=== PATIENT | female | born 1970 | race Caucasian/White ===

== ENCOUNTER 2018-08-23 14:46 | Emergency (ER) | payer MEDICARE ==
[2018-08-23 15:06] LABS: Absolute Lymphocytes (CBC) 2.1 K/uL (0.7-4.9); Eosinophils % 2.4 % (0-4.4); Hematocrit 40.9 % (36.0-45.0); Lymphocytes % 22.6 % (15.3-44.8); MPV 9.4 fL (7.6-11.3); Monocytes % 10.8 % (3.3-12.3); RBC Red Blood Cell Count 4.17 M/uL (3.86-4.86)
[2018-08-23] MEDS ORDERED: TETANUS & DIPHTHERIA TOX,ADULT 0.5 ML VIAL ONE (15:08)
[2018-08-23] MEDS ORDERED: ONDANSETRON 4 MG/2 ML VIAL ONE ×3 (15:08→20:58)
[2018-08-23] MEDS ORDERED: MORPHINE 4 MG/ML SYR ONE ×3 (15:08→18:02)
[2018-08-23] MEDS ORDERED: NA CHLORIDE 0.9% 1,000 ML ONE (15:08)
--- NOTE | 2018-08-23 15:26 | RAD REPORT ---
EXAM DESCRIPTION: CT - CTHCSPWOC - 08/23/2018 3:13 pm CLINICAL HISTORY: Trauma, head and neck injury. PAIN COMPARISON: No comparisons TECHNIQUE: Axial 5 mm thick images of the head were obtained. Axial 2 mm thick images of the cervical spine were obtained with sagittal and coronal reconstruction images generated and reviewed. All CT scans are performed using dose optimization technique as appropriate and may include automated exposure control or mA/KV adjustment according to patient size. FINDINGS: CT HEAD WITHOUT CONTRAST: No acute hemorrhage, hydrocephalus or extra-axial collection is identified.No areas of brain edema or midline shift. The paranasal sinuses and left mastoid are clear.Previous right partial mastoidectomy seen.The calvar ium is intact. CT CERVICAL SPINE WITHOUT CONTRAST: No fracture or subluxation.Moderate multilevel spondylosis of the cervical spine is present. Central canal stenosis is likely present C5-6 and C6-7.No prevertebral soft tissues swelling is identified. IMPRESSION: No acute intracranial or cervical spine findings. Moderate cervical degenerative changes.
[2018-08-23] MEDS ORDERED: CEFAZOLIN/SWI 1gm 0 GM/0 ML SYR ONE (15:37)
--- NOTE | 2018-08-23 16:11 | RAD REPORT ---
EXAM DESCRIPTION: RAD - Knee Left 3 View - 08/23/2018 3:56 pm CLINICAL HISTORY: PAIN Trauma, pain, swelling COMPARISON: None FINDINGS: Left knee and left tibia/fibula - multiple projections are submitted Lucency is present along the anterior aspect of the superior tibia compatible with a fracture. Soft t issue swelling is present. A small knee joint effusion is present.
--- NOTE | 2018-08-23 16:13 | RAD REPORT ---
EXAM DESCRIPTION: RAD - Foot Right 3 View - 08/23/2018 3:55 pm CLINICAL HISTORY: right great toe laceration COMPARISON: <Comparisons> FINDINGS: Soft tissue swelling is seen affecting the great toe. Bandaging obscures bone detail in th e region. Irregularity of the interphalangeal joint of the great toe is probably chronic. There is ev idence of a spiral fracture, partially seen, involving the distal fibular shaft, which shows unusual abnormal bony expansion.
[2018-08-23] MEDS ORDERED: LIDOCAINE 1% MPF 5 ML VIAL ONE ×2 (16:24→16:27)
[2018-08-23] MEDS ORDERED: CEFAZOLIN/SWI 1gm 1 GM/10 ML SYR ONE (16:25)
--- NOTE | 2018-08-23 17:11 | EDPHYS ---
Physician Documentation [facility] Name: Gita Bautista Age: 47 yrs Sex: Female : 1970 Arrival Date: 08/23/2018 Time: 14:47 Bed 4 Private MD: LELE Physician Ronnie Mattson HPI: 08/23 15:45 This 47 yrs old Female presents to ER via EMS with complaints of Fall Injury. pm1 15:45 Details of fall: The patient fell from seated position, Motorized wheelchair. Onset: pm1 The symptoms/episode began/occurred just prior to arrival. Associated injuries: The patient sustained right first toe laceration and pain, left knee, painful injury. Associated injuries: The patient sustained face, abrasion. Severity of symptoms: in the emergency department the symptoms are unchanged. The patient has not experienced similar symptoms in the past. The patient has not recently seen a physician, the patient's primary care provider is Dr. Jasmine. 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 Rods in back from arthrogryposis and scoliosis. Patient non-ambulatory and uses motorized wheelchair. Patient was going around a corner and she fell over. The wheelchair continued to move and it ran over her right foot, right lower leg, and left lower leg. Presenting with pain to right foot, right lower leg and left lower leg below the knee, laceration to right great toe, abrasion to left forehead, and headache. No LOC, neck pain, vomiting.. 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 - Social history:: Smoking status: Patient/guardian denies using tobacco. - Immunization history: Last tetanus immunization: - up to date. - Ebola Screening: : No symptoms or risks identified at this time. ROS: 15:45 Constitutional: Negative for fever, chills, and weight loss, Eyes: Negative for injury, pm1 pain, redness, and discharge, ENT: Negative for injury, pain, and discharge, Neck: Negative for injury, pain, and swelling, Cardiovascular: Negative for chest pain, palpitations, and edema, Respiratory: Negative for shortness of breath, cough, wheezing, and pleuritic chest pain, Abdomen/GI: Negative for abdominal pain, nausea, vomiting, diarrhea, and constipation, Back: Negative for injury and pain. 15:45 MS/extremity: Positive for pain, of the right great toe, right lower leg, left lower leg. 15:45 Skin: Positive for laceration(s), of the right first toe. 15:45 Neuro: Positive for headache, Negative for numbness, tingling, weakness, sensation intact to right great toe. Exam: 15:45 Constitutional: This is a well developed, well nourished patient who is awake, alert, pm1 and in no acute distress. Eyes: Pupils equal round and reactive to light, extra-ocular motions intact. Lids and lashes normal. Conjunctiva and sclera are non-icteric and not injected. Cornea within normal limits. Periorbital areas with no swelling, redness, or edema. 15:45 ENT: Nares patent. No nasal discharge, no septal abnormalities noted. Tympanic membranes are normal and external auditory canals are clear. Oropharynx with no redness, swelling, or masses, exudates, or evidence of obstruction, uvula midline. Mucous membranes moist. Neck: Trachea midline, no thyromegaly or masses palpated, and no cervical lymphadenopathy. Supple, full range of motion without nuchal rigidity, or vertebral point tenderness. No Meningismus. Chest/axilla: Normal chest wall appearance and motion. Nontender with no deformity. No lesions are appreciated. Cardiovascular: Regular rate and rhythm with a normal S1 and S2. No gallops, murmurs, or rubs. No pulse deficits. Respiratory: Lungs have equal breath sounds bilaterally, clear to auscultation and percussion. No rales, rhonchi or wheezes noted. No increased work of breathing, no retractions or nasal flaring. Back: No spinal tenderness. No costovertebral tenderness. Full range of motion. 15:45 Head/face: Exam is negative for hernandez signs, deformity, raccoon eyes, Noted is no obvious of injury or deformity except abrasion(s), that are mild, of the forehead. 15:45 Abdomen/GI: Inspection: obese Bowel sounds: normal, Palpation: abdomen is soft and non-tender, in all quadrants, mass, is not appreciated, rebound tenderness, is not appreciated. 15:45 Musculoskeletal/extremity: Extremities: grossly normal except: noted in the right first toe: open fracture, noted in the left ortega tenderness just below left knee: noted in the right ortega: tenderness, distally. 15:45 Skin: Appearance: normal except for affected area, injury, abrasion(s), small abrasion noted, of the forehead, laceration(s), the wound is approximately 7 cm(s), with a depth of 1 cm(s), of the right first toe. 15:45 Neuro: Orientation: is normal, Mentation: is normal, Sensation: neurovascular status intact to right great toe. Vital Signs: 14:48 BP 136 / 66; Pulse 92; Resp 16; Temp 98.2; Pulse Ox 98% on R/A; Pain 9/10; hb 17:50 BP 110 / 67; Pulse 66; Resp 16; Pulse Ox 100% on R/A; sg 20:30 BP 89 / 59; Pulse 77; Resp 16; Temp 97.6; Pulse Ox 100% on R/A; ak1 20:54 BP 96 / 58; Pulse 73; Resp 16; Temp 97.6; Pulse Ox 100% on R/A; ak1 [place] Coma Score: 17:50 Eye Response: spontaneous(4). Verbal Response: oriented(5). Motor Response: obeys sg commands(6). Total: 15. Trauma Score (Adult): 14:48 Eye Response: spontaneous(1); Verbal Response: oriented(1); Motor Response: obeys hb commands(2); Systolic BP: > 89 mm Hg(4); Respiratory Rate: 10 to 29 per min(4); [place] Score: 15; Trauma Score: 12 17:50 Eye Response: spontaneous(1); Verbal Response: oriented(1); Motor Response: obeys sg commands(2); Systolic BP: > 89 mm Hg(4); Respiratory Rate: 10 to 29 per min(4); [place] Score: 15; Trauma Score: 12 Laceration: 17:04 Wound Repair of 7cm ( 2.8in ) subcutaneous laceration to right first toe. Irregularly pm1 shaped.. Distal neuro/vascular/tendon intact. Anesthesia: Local anesthetic administered with 4 mls of 1% lidocaine. Wound prep: Extensive cleansing with hibiclenz by me, Wound irrigation with saline by me, Wound explored extensively, Copious irrigation. Skin closed with 8 4-0 Prolene using simple sutures and sterile technique. Dressed with Neosporin, 4x4's. Patient tolerated well. MDM: 14:48 Patient medically screened. pm1 17:06 Data reviewed: vital signs. Data interpreted: Pulse oximetry: on room air is 98 %. pm1 Interpretation: normal. Counseling: I had a detailed discussion with the patient and/or guardian regarding: the historical points, exam findings, and any diagnostic results supporting the discharge/admit diagnosis, radiology results, the need to transfer to another facility, for higher level of care. 17:30 Physician consultation: Alin Summers MD was called at 17:29, was contacted at 17:29, pm1 regarding consult, patient's condition, after a discussion of the case, a recommendation for transfer for higher level of care is made, Transfer for higher level of care due to potential complications related to patient's arthrogryposis. 18:42 Physician consultation: Trauma Surgeon Person was contacted at 18:31, regarding pm1 regarding transfer, patient's condition, and will see patient in ED. 08/23 14:50 Order name: Basic Metabolic Panel; Complete Time: 15:24 pm1 08/23 14:50 Order name: CBC with Diff; Complete Time: 15:15 pm1 08/23 14:50 Order name: CT Head C Spine; Complete Time: 15:40 pm1 08/23 14:50 Order name: Creatinine for Radiology; Complete Time: 15:24 pm1 08/23 14:50 Order name: Type And Screen; Complete Time: 15:51 pm1 08/23 19:16 Order name: ABO/RH no charge; Complete Time: 19:16 EDMS 08/23 14:50 Order name: Foot Right 3 View XRAY; Complete Time: 17:10 pm1 08/23 14:50 Order name: Knee Left 3 View XRAY; Complete Time: 17:10 pm1 08/23 14:50 Order name: Tib Fib Left XRAY pm1 08/23 17:03 Order name: Tib Fib Right XRAY; Complete Time: 17:53 pm1 08/23 14:50 Order name: Labs collected and sent; Complete Time: 14:51 pm1 08/23 16:06 Order name: Prolene, Sutures; Complete Time: 16:41 pm1 08/23 16:06 Order name: Dressing - Wound; Complete Time: 16:41 pm1 08/23 16:06 Order name: Gloves, Sterile; Complete Time: 16:41 pm1 08/23 16:06 Order name: Setup Suture Tray; Complete Time: 16:41 pm1 08/23 16:06 Order name: Splint - Posterior Leg; Complete Time: 18:27 pm1 08/23 17:57 Order name: Splint - Posterior Leg: RIght; Complete Time: 18:25 pm1 Administered Medications: 14:56 Drug: Tetanus-Diphtheria Toxoid Adult 0.5 ml {[employer]: [employer]. Exp: 05/17/2020. Lot #: [id number]. } Route: IM; Site: right deltoid; 16:22 Follow up: Response: No adverse reaction mg2 14:57 Drug: morphine 4 mg Route: IVP; Site: right antecubital; hb 16:23 Follow up: Response: No adverse reaction; Marked relief of symptoms mg2 14:57 Drug: Zofran 4 mg Route: IVP; Site: right antecubital; hb 16:23 Follow up: Response: No adverse reaction; Marked relief of symptoms mg2 16:21 Drug: ceFAZolin 1 grams Volume: 50 ml; Route: IVPB; Infused Over: 30 mins; Site: right hb antecubital; 20:55 Follow up: IV Status: Completed infusion ak1 16:21 Drug: morphine 4 mg Route: IVP; Site: right antecubital; hb 20:55 Follow up: Response: No adverse reaction ak1 16:22 Drug: NS 0.9% 1000 ml Route: IV; Rate: 125 ml/hr; Site: right antecubital; hb 20:55 Follow up: IV Status: Completed infusion; IV Intake: 1000ml ak1 16:40 Drug: Lidocaine (1 %) 5 ml {Note: given by provider.} Volume: 5 ml; Route: Infiltration;mg2 17:54 Drug: morphine 4 mg Route: IVP; Site: right antecubital; sg 19:37 Follow up: Response: No adverse reaction ak1 17:55 Drug: Zofran 4 mg Route: IVP; Site: right antecubital; sg 19:37 Follow up: Response: No adverse reaction ak1 20:51 Drug: fentaNYL (PF) 50 mcg Route: IVP; Site: right antecubital; ak1 20:52 Follow up: Response: No adverse reaction ak1 20:52 Drug: Zofran 4 mg Route: IVP; Site: right antecubital; ak1 20:52 Follow up: Response: No adverse reaction ak1 Disposition: 08/24 07:19 Co-signature as Attending Physician, Ronnie Mattson MD I agree with the assessment and chad plan of care. Disposition: 08/23/18 17:10 Transfer ordered to [facility]. Diagnosis are Fracture of great toe - right great toe open fracture, Left tibia plateau fracture, Abrasion of unspecified part of head, Superficial injury of head, Distal right tibia spiral fracture, Proximal right fibula oblique fracture. - Reason for transfer: Higher level of care. - Accepting physician is [facility]. - Condition is Stable. - Problem is new. - Symptoms have improved. Signatures: Dispatcher [employer] Jose Singleton, Ronnie Chavez RN, MD MD cha Krenek, Amber RN RN ak1 Fortino Duncan, PROFESSOR OF THEATRE PROFESSOR OF THEATRE pm1 Rose Driscoll RN RN Jerry Olivares RN RN mg2 Corrections: (The following items were deleted from the chart) 08/23 17:12 16:15 Ortho shoe ordered. pm1 pm1 17:13 17:10 08/23/2018 17:10 Transfer ordered to [facility]. pm1 Diagnosis is Fracture of great toe - right great toe open fractureLeft tibia plateau fracture; Abrasion of unspecified part of head; Superficial injury of head. Reason for transfer: Higher level of care. Accepting physician is [facility]. Condition is Stable. Problem is new. Symptoms have improved. pm1 17:56 17:13 08/23/2018 17:10 Transfer ordered to [facility]. pm1 Diagnosis is Fracture of great toe - right great toe open fractureLeft tibia plateau fracture; Abrasion of unspecified part of head; Superficial injury of head; Distal right fibula spiral fracture. Reason for transfer: Higher level of care. Accepting physician is [facility]. Condition is Stable. Problem is new. Symptoms have improved. pm1 17:57 17:12 Splint - Ankle: Orthoglass: Posterior ordered. pm1 pm1 21:09 17:56 08/23/2018 17:10 Transfer ordered to [facility]. ak1 Diagnosis is Fracture of great toe - right great toe open fractureLeft tibia plateau fracture; Abrasion of unspecified part of head; Superficial injury of head; Distal right tibia spiral fracture; Proximal right fibula oblique fracture. Reason for transfer: Higher level of care. Accepting physician is [facility]. Condition is Stable. Problem is new. Symptoms have improved. pm1
--- NOTE | 2018-08-23 17:11 | ER ---
Nurse's Notes [facility] Name: Gita Bautista Age: 47 yrs Sex: Female : 1970 Arrival Date: 08/23/2018 Time: 14:47 Bed 4 Private MD: Diagnosis: Left tibia plateau fracture;Fracture of great toe-right great toe open fracture;Abrasion of unspecified part of head;Superficial injury of head;Distal right tibia spiral fracture;Proximal right fibula oblique fracture Presentation: 08/23 14:46 Presenting complaint: EMS states: Motorized wheelchair fell off curb then ran over both legs. Partial amputation of right great toe, abrasion to left forehead, pt c/o bilateral leg pain 11/27. Negative LOC. Care prior to arrival: None. Mechanism of Injury: Fall out of chair. Trauma event details: Injury occurred in the [facility], Injury occurred: on a street or highway. Injury occurred: August 23, 2018. 14:46 Acuity: IGOR 2 14:46 Method Of Arrival: EMS: [facility] 19:33 Transition of care: patient was not received from another setting of care. Onset of ak1 symptoms was August 23, 2018. Risk Assessment: Do you want to hurt yourself or someone else? Patient reports no desire to harm self or others. Initial Sepsis Screen: Does the patient meet any 2 criteria? No. Patient's initial sepsis screen is negative. Does the patient have a suspected source of infection? No. Patient's initial sepsis screen is negative. [employer]: 19:33 unknown ak1 Trauma Activation: Alert Physician: ED Physician; Name: ; Notified At: ; Arrived At: Physician: General Surgeon; Name: ; Notified At: ; Arrived At: Physician: Radiology; Name: ; Notified At: ; Arrived At: Physician: Respiratory; Name: ; Notified At: ; Arrived At: Physician: Lab; Name: ; Notified At: ; Arrived At: Historical: - Allergies: 15:00 Sulfa (Sulfonamide Antibiotics); hb - Home Meds: 15:01 Lisinopril Oral [Active]; amlodipine oral [Active]; Metoprolol Tartrate Oral [Active]; hb Cyclobenzaprine Oral [Active]; - PMHx: 19:05 Hypertension; Chronic pain; sg - PSHx: 15:00 Arthrogryposis; Feet - Bilateral; Hips - Bilateral; ; mastoidectomy - right; hb tympanoplasty - right; - Immunization history:: Adult Immunizations up to date. - Social history:: Smoking status: Patient/guardian denies using tobacco. - Immunization history: Last tetanus immunization: - up to date. - Ebola Screening: : No symptoms or risks identified at this time. Screenin:50 Abuse screen: Denies threats or abuse. Denies injuries from another. Tuberculosis hb screening: No symptoms or risk factors identified. 19:34 Nutritional screening: No deficits noted. Fall Risk Gait- Normal/Bed Rest/Wheelchair (0 ak1 pts). Primary Survey: 14:50 NO uncontrolled hemorrhage observed. A: The patient is alert. Airway: patent, No hb supplemental oxygen in use on arrival. Breathing/Chest: Respiratory pattern: regular, Respiratory effort: spontaneous, unlabored, Chest inspection: symmetrical rise and fall of the chest. Circulation: Skin color: pink, Skin temperature: warm, dry. Disability Alert. Exposure/Environment: There is no evidence of uncontrolled external bleeding. Obvious injury(ies) are noted at this time: partial amputation of right great toe, abrasion to left forehead. 19:36 Reassessment Breathing/Chest Respiratory pattern Regular Respiratory effort Spontaneous ak1 Unlabored. Assessment: 14:50 General: Appears in no apparent distress. well groomed, well developed, well nourished, sg Behavior is calm, cooperative, appropriate for age. Pain: Complains of pain in forehead, anterior aspect of left shoulder, right leg and left leg Quality of pain is described as aching, sharp, tender. Neuro: Level of Consciousness is awake, alert, obeys commands, Oriented to person, place, time, situation, Speech is normal, Facial symmetry appears normal. Cardiovascular: Patient's skin is warm and dry. Chest pain is denied. Respiratory: Airway is patent Respiratory effort is even, unlabored, Respiratory pattern is regular, symmetrical. GI: Abdomen is flat, non-distended, Reports tolerance of fluids, tolerance of food. : No signs and/or symptoms were reported regarding the genitourinary system. EENT: No signs and/or symptoms were reported regarding the EENT system. Derm: Skin is pink, warm \T\ dry. Musculoskeletal: Range of motion: limited in left ankle and right ankle Reports pain in right leg and left leg. Injury Description: open fracture to the right big toe. 15:50 Reassessment: Patient appears in no apparent distress at this time. Patient and/or sg family updated on plan of care and expected duration. Pain level reassessed. Patient is alert, oriented x 3, equal unlabored respirations, skin warm/dry/pink. Patient states feeling better. 16:50 Reassessment: Patient appears in no apparent distress at this time. Patient and/or sg family updated on plan of care and expected duration. Pain level reassessed. Patient is alert, oriented x 3, equal unlabored respirations, skin warm/dry/pink. 17:50 Reassessment: Patient states feeling better. Cardiovascular: Pulses are palpable in sg right popliteal artery, right posterior tibial artery, left popliteal artery and left posterior tibial artery. Respiratory: Airway is patent Respiratory effort is even, unlabored, Respiratory pattern is regular, symmetrical. Derm: Skin is pink, warm \T\ dry. 18:51 Reassessment: Patient appears in no apparent distress at this time. Patient and/or sg family updated on plan of care and expected duration. Pain level reassessed. Patient is alert, oriented x 3, equal unlabored respirations, skin warm/dry/pink. pt repositioned to right side lying position, pt reports relief in pain and increase in comfort, pt is resting quietly. 19:32 Reassessment: Patient appears in no apparent distress at this time. No changes from ak1 previously documented assessment. Patient and/or family updated on plan of care and expected duration. Pain level reassessed. Patient is alert, oriented x 3, equal unlabored respirations, skin warm/dry/pink. pt informed of wait for EMS to transfer [facility]. [facility] 19:34 General: Appears in no apparent distress. comfortable, Behavior is calm, cooperative, ak1 appropriate for age. Pain: Complains of pain in right leg and left leg. Neuro: Level of Consciousness is awake, alert, obeys commands, Oriented to person, place, time, situation, Speech is normal, Facial symmetry appears normal. Cardiovascular: No deficits noted. Respiratory: No deficits noted. GI: No signs and/or symptoms were reported involving the gastrointestinal system. : No signs and/or symptoms were reported regarding the genitourinary system. EENT: No signs and/or symptoms were reported regarding the EENT system. Derm: abrasion to forehead, right great toe. Musculoskeletal: Reports pain in right foot, right leg and left leg. 20:56 Reassessment: pt c/o increased pain, ERP notified with new orders placed. pt informed ak1 again of wait for EMS for transport due to weather. pt assisted with bedpan and cleaned of urine. 21:05 Reassessment: report given to [facility]. ak1 Vital Signs: 14:48 BP 136 / 66; Pulse 92; Resp 16; Temp 98.2; Pulse Ox 98% on R/A; Pain 9/10; hb 17:50 BP 110 / 67; Pulse 66; Resp 16; Pulse Ox 100% on R/A; sg 20:30 BP 89 / 59; Pulse 77; Resp 16; Temp 97.6; Pulse Ox 100% on R/A; ak1 20:54 BP 96 / 58; Pulse 73; Resp 16; Temp 97.6; Pulse Ox 100% on R/A; ak1 Superior Coma Score: 17:50 Eye Response: spontaneous(4). Verbal Response: oriented(5). Motor Response: obeys sg commands(6). Total: 15. Trauma Score (Adult): 14:48 Eye Response: spontaneous(1); Verbal Response: oriented(1); Motor Response: obeys hb commands(2); Systolic BP: > 89 mm Hg(4); Respiratory Rate: 10 to 29 per min(4); Superior Score: 15; Trauma Score: 12 17:50 Eye Response: spontaneous(1); Verbal Response: oriented(1); Motor Response: obeys sg commands(2); Systolic BP: > 89 mm Hg(4); Respiratory Rate: 10 to 29 per min(4); Mahendra Score: 15; Trauma Score: 12 ED Course: 14:47 Patient arrived in ED. hb 14:48 Fortino Duncan NP is PHCP. pm1 14:48 Ronnie Mattson MD is Attending Physician. pm1 14:50 Triage completed. hb 14:50 Initial lab(s) drawn, by me, sent to lab. Inserted saline lock: 22 gauge in right ms antecubital area, using aseptic technique. Blood collected. 15:15 Jose Traylor, RN is Primary Nurse. sg 15:18 CT Head C Spine In Process Unspecified. EDMS 15:55 Foot Right 3 View XRAY In Process Unspecified. EDMS 15:55 Knee Left 3 View XRAY In Process Unspecified. EDMS 15:55 Tib Fib Left XRAY In Process Unspecified. EDMS 17:38 Tib Fib Right XRAY In Process Unspecified. EDMS 18:25 Orthoglass splint: Posterior long leg splint applied on bilaterally. ms 19:32 Patient transferred, IV remains in place. ak1 19:32 Arm band placed on Patient placed in an exam room, on a stretcher, on pulse oximetry, ak1 Patient notified of wait time. 19:33 Patient maintains SpO2 saturation greater than 95% on room air. ak1 19:34 Thermoregulation: warm blanket given to patient. ak1 19:34 Patient has correct armband on for positive identification. Placed in gown. Bed in low ak1 position. Call light in reach. Side rails up X2. nurse monitoring on. Pulse ox on. NIBP on. 20:53 No provider procedures requiring assistance completed. ak1 Administered Medications: 14:56 Drug: Tetanus-Diphtheria Toxoid Adult 0.5 ml {Strategic Planner: [employer]. Exp: hb 05/17/2020. Lot #: [id number]. } Route: IM; Site: right deltoid; 16:22 Follow up: Response: No adverse reaction mg2 14:57 Drug: morphine 4 mg Route: IVP; Site: right antecubital; hb 16:23 Follow up: Response: No adverse reaction; Marked relief of symptoms mg2 14:57 Drug: Zofran 4 mg Route: IVP; Site: right antecubital; hb 16:23 Follow up: Response: No adverse reaction; Marked relief of symptoms mg2 16:21 Drug: ceFAZolin 1 grams Volume: 50 ml; Route: IVPB; Infused Over: 30 mins; Site: right hb antecubital; 20:55 Follow up: IV Status: Completed infusion ak1 16:21 Drug: morphine 4 mg Route: IVP; Site: right antecubital; hb 20:55 Follow up: Response: No adverse reaction ak1 16:22 Drug: NS 0.9% 1000 ml Route: IV; Rate: 125 ml/hr; Site: right antecubital; hb 20:55 Follow up: IV Status: Completed infusion; IV Intake: 1000ml ak1 16:40 Drug: Lidocaine (1 %) 5 ml {Note: given by provider.} Volume: 5 ml; Route: Infiltration;mg2 17:54 Drug: morphine 4 mg Route: IVP; Site: right antecubital; sg 19:37 Follow up: Response: No adverse reaction ak1 17:55 Drug: Zofran 4 mg Route: IVP; Site: right antecubital; sg 19:37 Follow up: Response: No adverse reaction ak1 20:51 Drug: fentaNYL (PF) 50 mcg Route: IVP; Site: right antecubital; ak1 20:52 Follow up: Response: No adverse reaction ak1 20:52 Drug: Zofran 4 mg Route: IVP; Site: right antecubital; ak1 20:52 Follow up: Response: No adverse reaction ak1 Intake: 19:36 PO: 0ml; Total: 0ml. ak1 20:55 IV: 1000ml; Total: 1000ml. ak1 Outcome: 17:10 ER care complete, transfer ordered by MD. pm1 19:34 Transferred by ground EMS to [facility], Transfer form completed. X-rays sent ak1 w/ patient. Note: report given to [employer] dispatcher 19:34 Condition: stable 19:34 Instructed on the need for transfer. 21:09 Patient left the ED. ak1 Signatures: Dispatcher [employer] EDMS Jose Traylor RN RN Tammy Anand ms Tasha Herbert RN RN ak1 Fortino Duncan, NUT DEHYDRATOR OPERATOR NUT DEHYDRATOR OPERATOR pm1 Rose Driscoll RN RN Jerry Olivares RN RN mg2 Corrections: (The following items were deleted from the chart) 18:49 14:46 Presenting complaint: EMS states: Motorized wheelchair fell off curb then ran hb over both legs. Partial amputation of left great toe, abrasion to left forehead, pt c/o bilateral leg pain 11/27. Negative LOC hb 18:49 14:50 Exposure/Environment: There is no evidence of uncontrolled external bleeding. hb Obvious injury(ies) are noted at this time: partial amputation of left great toe, abrasion to left forehead hb
--- NOTE | 2018-08-23 17:45 | RAD REPORT ---
EXAM DESCRIPTION: RAD - Tib Fib Right - 08/23/2018 5:40 pm CLINICAL HISTORY: PAIN Trauma, pain COMPARISON: No comparisons FINDINGS: A spiral fracture is seen involving the distal shaft of the tibia. An oblique fracture is present involving the proximal shaft of the fibula. A dislocation is not evident.
[2018-08-23] MEDS ORDERED: FENTANYL CITR 100 MCG/2 ML ONE (20:58)
--- NOTE | 2018-08-24 13:24 | RAD REPORT ---
EXAM DESCRIPTION: RAD - Tib Fib Left - 08/23/2018 3:56 pm CLINICAL HISTORY: PAIN Trauma, pain, swelling COMPARISON: None FINDINGS: Left knee and left tibia/fibula - multiple projections are submitted Lucency is present along the anterior aspect of the superior tibia compatible with a fracture. Soft t issue swelling is present. A small knee joint effusion is present.
== END 2018-08-23 21:09 | disposition short-term general hospital (02) ==
LOC: ER 14:46
PROC: 0JQQ0ZZ Repair Right Foot Subcutaneous Tissue and Fascia, Open Approach (ICD-10-PCS; principal; 2018-08-23)
DX: S00.81XA Abrasion of other part of head, initial encounter (principal); S92.401B Displaced unspecified fracture of right great toe, initial encounter for open fracture; S82.142A Displaced bicondylar fracture of left tibia, initial encounter for closed fracture; S82.301A Unspecified fracture of lower end of right tibia, initial encounter for closed fracture; S82.431A Displaced oblique fracture of shaft of right fibula, initial encounter for closed fracture; V00.811A Fall from moving wheelchair (powered), initial encounter; W23.0XXA Caught, crushed, jammed, or pinched between moving objects, initial encounter; Z23 Encounter for immunization; Z88.2 Allergy status to sulfonamides; I10 Essential (primary) hypertension
CPT/HCPCS: 96365; 85025; 80048; 36415; 86900; 86850; 86901; 70450; 72125; 73630; 73562; 73590 ×2; 90471; 90714; 96375; 99285; 96366; 12002; J3010; J0690; J7030; J2405 ×3